=== PATIENT | male | born 1980 | race Caucasian/White ===

== ENCOUNTER 2022-04-16 13:54 | Emergency (ER) | payer OTHER ==
[~2022-04-16] VITALS: Ht 172.7 cm; Wt 83.9 kg
[2022-04-16 16:18] LABS: Influenza A, PCR NEGATIVE (NEGATIVE); Influenza B, PCR NEGATIVE (NEGATIVE); Resp Syncytial Virus, PCR NEGATIVE (NEGATIVE); SARS-Cov-2 (COVID-19) PCR, MMC NEGATIVE (NEGATIVE)
[2022-04-16] MEDS ORDERED: CODEINE-GUAIFE120 M1 PO (16:38)
[2022-04-16] MEDS ORDERED: METPRE4DP PO (16:38)
[2022-04-16] MEDS ORDERED: IBU600 M1 PO (16:38)
== END 2022-04-16 16:44 | disposition home or self-care (01) ==
LOC: ER 13:54 → EDBD 13:54 → ER 16:44
PROVIDERS: Physician Assistant
DX: J06.9 Acute upper respiratory infection, unspecified (principal); Z88.2 Allergy status to sulfonamides; Z20.822 Contact with and (suspected) exposure to COVID-19
CPT/HCPCS: 0241U; 71046

== ENCOUNTER 2024-03-16 09:21 | Emergency (ER) | payer OTHER ==
[~2024-03-16] VITALS: Ht 172.7 cm; Wt 86.2 kg
[~2024-03-16 09:21] MED LIST: CODEINE-GUAIFE120 M1 PO; IBU600 M1 PO; METPRE4DP PO
[2024-03-16 09:41] VITALS: BP 120/86
[2024-03-16] MEDS ORDERED: Methadone HCL 10 MG TAB PO ONE (10:10)
== END 2024-03-16 10:35 | disposition home or self-care (01) ==
LOC: ER 09:21
DX: F11.90 Opioid use, unspecified, uncomplicated (principal); Z76.0 Encounter for issue of repeat prescription; Z79.899 Other long term (current) drug therapy; Z88.2 Allergy status to sulfonamides
CPT/HCPCS: 99281; A9270